=== PATIENT | female | born 1950 | race Asian ===

== ENCOUNTER 2017-01-17 22:10 | Emergency (ER) | payer OTHER ==
[~2017-01-17] VITALS: Ht 160 cm; Wt 54.2 kg
[~2017-01-17 22:10] MED LIST: ALENDRONATE SOD35 MG PO; CRESTOR20 MG PO; ISONIAZID,INH300 MG PO; MELOXICAM15 MG PO; NAPROSYN500 MG PO; NOHOMEMEDS; NORCO 5/3251 TABLET PO
[2017-01-18 00:03] VITALS: BP 129/68
== END 2017-01-18 00:05 | disposition home or self-care (01) ==
LOC: EME 22:10
DX: S63.91XA Sprain of unspecified part of right wrist and hand, initial encounter (principal); S60.011A Contusion of right thumb without damage to nail, initial encounter; X50.0XXA Overexertion from strenuous movement or load, initial encounter; Y93.89 Activity, other specified; Y92.511 Restaurant or cafe as the place of occurrence of the external cause; Y99.0 Civilian activity done for income or pay
CPT/HCPCS: 73130; 99281; 99284